=== PATIENT | female | born 1985 | race Caucasian/White ===

== ENCOUNTER 2017-01-24 20:09 | Emergency (ER) | payer OTHER ==
[~2017-01-24] VITALS: Ht 162.6 cm; Wt 79.4 kg
[~2017-01-24 20:09] MED LIST: CIPROFLOXACIN500 M1 PO; IBUPROFEN 200200 M1; IBUPROFEN 600600 M1 PO; NOHOMEMEDICATIONS; NORCO 5-325 TA1 EACH; NORCO 5-325 TA1 EACH PO; PYRIDIUM200 MG PO; ULTRAM 50MG TAB50 MG PO
[2017-01-24 20:50] LABS: HEMATOCRIT 45.7 % (37.0-47.0); HEMOGLOBIN 16.1 gm/dL (12.0-15.0); MCH 30.4 pg (26.0-34.0); MCHC 35.2 g/dL (28.0-37.0); MCV 86.4 fL (80.0-100.0); RBC 5.29 mil/uL (4.20-5.00); WBC 12.9 thou/uL (4.0-11.0)
[2017-01-24 20:52] LABS: CALCIUM 9.4 mg/dL (8.5-10.1); CREATININE 0.8 mg/dL (0.6-1.0); POTASSIUM 3.5 mmol/L (3.5-5.1)
[2017-01-24 20:58] LABS: ALBUMIN 4.2 g/dL (3.4-5.0); TOTAL BILIRUBIN 0.4 mg/dL (<0.1-1.0); TOTAL PROTEIN 7.5 g/dL (6.4-8.2)
[2017-01-24] MEDS ORDERED: PRILOSEC 20 MG20 MG PO (23:39)
[2017-01-24] MEDS ORDERED: NORCO 5-325 TA1 EACH PO (23:39)
[2017-01-24 23:46] VITALS: BP 105/75
== END 2017-01-24 23:48 | disposition home or self-care (01) ==
LOC: ER 20:09
PROVIDERS: Emergency Medicine
DX: F17.210 Nicotine dependence, cigarettes, uncomplicated (principal); Z88.0 Allergy status to penicillin; R10.11 Right upper quadrant pain

== ENCOUNTER 2018-02-05 05:23 | Emergency (ER) | payer OTHER ==
[~2018-02-05] VITALS: Ht 157.5 cm; Wt 86.2 kg
[~2018-02-05 05:23] MED LIST changes: +PRILOSEC 20 MG20 MG PO
[2018-02-05] MEDS ORDERED: IBUPROFEN 600600 M1 PO (05:33)
[2018-02-05 07:35] VITALS: BP 107/77
== END 2018-02-05 07:35 | disposition home or self-care (01) ==
LOC: ER 05:23
DX: H40.89 Other specified glaucoma (principal); Z98.890 Other specified postprocedural states; F17.210 Nicotine dependence, cigarettes, uncomplicated; Z88.0 Allergy status to penicillin

== ENCOUNTER 2018-07-24 15:48 | Emergency (ER) | payer BC, OTHER ==
[~2018-07-24] VITALS: Ht 160 cm; Wt 86.2 kg
[2018-07-24 16:40] VITALS: BP 111/80
== END 2018-07-24 16:40 | disposition home or self-care (01) ==
LOC: ER 15:48
DX: R21 Rash and other nonspecific skin eruption (principal); F17.210 Nicotine dependence, cigarettes, uncomplicated; Z88.0 Allergy status to penicillin; Z98.890 Other specified postprocedural states

== ENCOUNTER 2020-02-09 15:31 | Emergency (ER) | payer BC, OTHER ==
[~2020-02-09] VITALS: Ht 160 cm; Wt 88.9 kg
[~2020-02-09 15:31] MED LIST changes: +KEFLEX500 M1 PO; +ZANTAC 150MG T150 MG PO; +ZYRTEC10 MG PO
[2020-02-09 16:29] LABS: ABSOLUTE NEUTROPHILS 3.4 thou/uL (1.4-8.2); BASOPHILS 1.4 % (0.0-2.0); EOSINOPHILS 3.6 % (0.0-3.0); HEMATOCRIT 44.7 % (37.0-47.0); HEMOGLOBIN 15.5 gm/dL (12.0-15.0); LYMPHOCYTES 40.2 % (24.0-44.0); MCH 30.9 pg (26.0-34.0); MCHC 34.7 g/dL (28.0-37.0); MCV 89.1 fL (80.0-100.0); MONOCYTES 10.4 % (1.0-8.0); PLATELET COUNT 271 thou/uL (150-400); POLYS 44.4 % (36.0-66.0); RBC 5.01 mil/uL (4.20-5.00); RDW 13.4 % (10.5-14.5); WBC 7.7 thou/uL (4.0-11.0)
[2020-02-09 16:35] LABS: CALCIUM 9.5 mg/dL (8.5-10.1); CREATININE 0.8 mg/dL (0.6-1.0); POTASSIUM 3.9 mmol/L (3.5-5.1)
[2020-02-09 16:41] LABS: ALBUMIN 4.2 g/dL (3.4-5.0); TOTAL BILIRUBIN 0.3 mg/dL (0.2-1.0); TOTAL PROTEIN 7.2 g/dL (6.4-8.2)
[2020-02-09] MEDS ORDERED: PROBIOTIC1 EAC7 PO (18:33)
[2020-02-09] MEDS ORDERED: NORCO 5-325 TA1 EAC2 PO (19:47)
[2020-02-09] MEDS ORDERED: BENTYL 20 MG TA20 M1 PO (19:47)
[2020-02-09 20:14] VITALS: BP 101/64
== END 2020-02-09 20:14 | disposition home or self-care (01) ==
LOC: ER 15:31
PROVIDERS: Emergency Medicine
DX: K80.50 Calculus of bile duct without cholangitis or cholecystitis without obstruction (principal); R19.7 Diarrhea, unspecified; R00.2 Palpitations; K21.9 Gastro-esophageal reflux disease without esophagitis; F17.210 Nicotine dependence, cigarettes, uncomplicated; Z98.890 Other specified postprocedural states; Z79.899 Other long term (current) drug therapy; Z88.0 Allergy status to penicillin